=== PATIENT | female | born 1965 | race Caucasian/White ===

== ENCOUNTER 2016-07-27 11:05 | Emergency (ER) | payer OTHER ==
[2016-07-27 11:22] VITALS: BP 147/83; PULSE 76; TEMP 98.1; O2SAT 97
[2016-07-27] MEDS ORDERED: Albuterol-Ipratrop 3 mg / 0.5 (3 ml) UD INH STA (12:31)
--- NOTE | 2016-07-27 12:34 | ED PDOC ---
HPI: General Adult Time Seen by Provider: 07/27/16 12:12 Chief Complaint (Nursing): Shortness Of Breath Chief Complaint (Provider): Cough, Shortness of breath History Per: Patient History/Exam Limitations: no limitations Onset/Duration Of Symptoms: Days (x4 days) Current Symptoms Are (Timing): Still Present Additional Complaint(s): 50 y/o female with a past medical history of hypertension presents to the emergency department with a complaint of a cough, shortness of breath, chest tightness, and sputum (rogers) since yesterday with no fever or chills. Patient denies any recent travel or known sick contacts. She denies any dyspnea on exertion. Dr. Alberto Conrad MD Past Medical History Reviewed: Historical Data, Nursing Documentation, Vital Signs Vital Signs: Last Vital Signs Temp 98.1 F 07/27/16 11:21 Pulse 76 07/27/16 11:21 Resp 20 07/27/16 12:51 BP 147/83 07/27/16 11:21 Pulse Ox 97 07/27/16 13:43 - Medical History PMH: HTN - Surgical History Surgical History: Appendectomy Other surgeries: Left ovarian Cyst removal, left oophorectomy - Family History Family History: States: No Known Family Hx - Living Arrangements Living Arrangements: With Family - Social History Current smoker - smoking cessation education provided: No Alcohol: None Drugs: Denies - Home Medications Home Medications: Ambulatory Orders Medication Instructions Recorded Ibuprofen [Motrin] 600 mg PO TID PRN #30 tab 04/07/14 Oseltamivir Phosphate [Tamiflu] 75 mg PO BID #10 cap 04/07/14 Ibuprofen [Motrin] 600 mg PO Q8 PRN #21 tab 03/02/15 Albuterol HFA [Ventolin HFA 90 1 puff IH ASDIR #1 unit 07/27/16 mcg/actuation (8 g)] Azithromycin [Zithromax] 250 mg PO DAILY #6 tab 07/27/16 Benzonatate 200 mg PO TID PRN #20 capsule 07/27/16 - Allergies Allergies/Adverse Reactions: Allergies Allergy/AdvReac Type Severity Reaction Status Date / Time No Known Allergies Allergy Verified 07/27/16 11:23 Review of Systems ROS Statement: Except As Marked, All Systems Reviewed And Found Negative Constitutional: Negative for: Fever Cardiovascular: Positive for: Other (Chest tightness when coughing) Respiratory: Positive for: Cough, Shortness of Breath, Pleuritic Pain, Sputum ( rogers). Negative for: Hemoptysis, SOB with Exertion Gastrointestinal: Negative for: Nausea, Vomiting Neurological: Negative for: Headache Physical Exam - Reviewed Nursing Documentation Reviewed: Yes Vital Signs Reviewed: Yes - Physical Exam Appears: Positive for: Non-toxic, No Acute Distress Head Exam: Positive for: ATRAUMATIC, NORMOCEPHALIC Skin: Positive for: Normal Color, Warm, Dry ENT: Positive for: Normal ENT Inspection. Negative for: Pharyngeal Erythema Neck: Positive for: Painless ROM Cardiovascular/Chest: Positive for: Regular Rate, Rhythm. Negative for: Murmur Respiratory: Positive for: Decreased Breath Sounds. Negative for: Accessory Muscle Use, Respiratory Distress Extremity: Negative for: Pedal Edema Neurologic/Psych: Positive for: Alert, Oriented - ECG Interpretation Of ECG: NSR 71 bpm, reviewed by PA and ED attending. O2 Sat by Pulse Oximetry: 97 (RA) Pulse Ox Interpretation: Normal - Other Rad CXR X-Ray: Interpreted by Me, Viewed By Me, Read By Radiologist X-Ray Interpretation: no acute infiltrate, see below Nebulizer Treatments/Peak Flow - Duonebs Number of Bronchodilator Doses given?: 1 (duoneb) - Pre/Post Peak Flow Pre Treatment Peak Flow: 300 Post treatment Peak Flow: 340 - Steroid Treatment Steroid: Not Clinically Indicated - Clinical Response Clinical Response: Improved Medical Decision Making Medical Decision Making: Time: 12:12 Initial plan: Chest Two Views (RAD) Duoneb 3mL INH Stat Nebulizer Treatment Peak Flow Pre/Post TX Influenza A B Stat Time: 13:25 --Chest X-ray FINDINGS: Examination limited by habitus. LUNGS: No focal consolidation. Please note that chest x-ray has limited sensitivity for the detection of pulmonary masses. PLEURA: No significant pleural effusion identified. No definite pneumothorax . CARDIOVASCULAR: Heart size appears within normal limits. Prominent mediastinum with ectatic aorta. OSSEOUS STRUCTURES: No acute osseous abnormality identified. VISUALIZED UPPER ABDOMEN: Unremarkable. OTHER FINDINGS: None. IMPRESSION: Prominent mediastinum with ectatic aorta. No focal consolidation, significant pleural effusion, or definite pneumothorax identified. Patient feels better after duoneb was given. Flu is negative. Prescription given for Tessalon Perles, albuterol inhaler and Zithromax. Patient was instructed to take meds as directed. She is advised to follow up with primary doctor in 1-2 days. Scribe Attestation: Documented by Latasha Bullock, acting as a scribe for Poonam Hunter PA-C. Provider Scribe Attestation: All medical record entries made by the Scribe were at my direction and personally dictated by me. I have reviewed the chart and agree that the record accurately reflects my personal performance of the history, physical exam, medical decision making, and the department course for this patient. I have also personally directed, reviewed, and agree with the discharge instructions and disposition. Disposition - Clinical Impression Clinical Impression: Bronchitis - Patient ED Disposition Is Patient to be Admitted: No Counseled Patient/Family Regarding: Studies Performed, Diagnosis, Need For Followup, Rx Given - Disposition Referrals: Alberto Conrad [Staff Provider] - Disposition: Routine/Home Disposition Time: 13:49 Condition: STABLE Additional Instructions: Take prescription meds as directed. Rest and drink plenty of fluids. Follow up with primary doctor in 1-2 days or return to ED if acutely worse at any time. Prescriptions: Benzonatate 200 mg PO TID PRN #20 capsule PRN Reason: Cough Albuterol HFA [Ventolin HFA 90 mcg/actuation (8 g)] 1 puff IH ASDIR #1 unit Azithromycin [Zithromax] 250 mg PO DAILY #6 tab Instructions: Acute Bronchitis (ED) Forms: [facility] ED School/Work Excuse
[2016-07-27] MEDS ORDERED: Albuterol-Ipratrop 3 mg / 0.5 (3 ml) UD ONE (12:42)
[2016-07-27 12:56] VITALS: RESP 20
--- NOTE | 2016-07-27 13:27 | RAD ---
HISTORY: cough COMPARISON: Chest x-ray performed 04/07/14 TECHNIQUE: Chest PA and lateral FINDINGS: Examination limited by habitus. LUNGS: No focal consolidation. Please note that chest x-ray has limited sensitivity for the detection of pulmonary masses. PLEURA: No significant pleural effusion identified. No definite pneumothorax . CARDIOVASCULAR: Heart size appears within normal limits. Prominent mediastinum with ectatic aorta. OSSEOUS STRUCTURES: No acute osseous abnormality identified. VISUALIZED UPPER ABDOMEN: Unremarkable. OTHER FINDINGS: None. IMPRESSION: Prominent mediastinum with ectatic aorta. No focal consolidation, significant pleural effusion, or definite pneumothorax identified.
--- NOTE | 2016-07-29 18:24 | CARD ---
APPROVED REPORT EKG Measurement Heart [id number] <Conclusion> Normal sinus rhythm Normal ECG
== END 2016-07-27 14:00 | disposition home or self-care (01) ==
LOC: H.ER 11:05
DX: J40 Bronchitis, not specified as acute or chronic (principal); I10 Essential (primary) hypertension

== ENCOUNTER 2016-10-25 15:35 | Emergency (ER) | payer OTHER ==
[2016-10-25] MEDS ORDERED: Sodium Chloride 0.9% 1,000 ML IV STA (15:54)
--- NOTE | 2016-10-25 16:21 | ED PDOC ---
HPI: Back Time Seen by Provider: 10/25/16 15:53 Chief Complaint (Nursing): Back Pain Chief Complaint (Provider): Right flank pain History Per: Patient History/Exam Limitations: no limitations Onset/Duration Of Symptoms: Days (1) Current Symptoms Are (Timing): Still Present Quality Of Discomfort: Burning, "Pain" Additional Complaint(s): Moraima Santo is a 51 y/o female presenting to the ER on 10/25/2016 with complaints of right flank pain onset yesterday. Pain, which radiates from the flank to her right lower abdomen, is associated with a low grade fever, malaise , and burning sensation upon urination. Patient denies any episodes of vomiting or diarrhea and any history of similar symptoms. She also notes she has not taken any medications for her pain prior to arrival. Past Medical History Reviewed: Historical Data, Nursing Documentation, Vital Signs Vital Signs: Last Vital Signs Temp 100.0 F H 10/25/16 15:47 Pulse 82 10/25/16 15:47 Resp 18 10/25/16 15:47 BP 144/66 10/25/16 15:47 Pulse Ox 98 10/25/16 15:47 - Medical History PMH: HTN - Surgical History Surgical History: Appendectomy Other surgeries: Ovarian Cyst removal and Left Ovary removal - Family History Family History: States: Unknown Family Hx - Social History Current smoker - smoking cessation education provided: No Alcohol: None Drugs: Denies - Immunization History Hx Tetanus Toxoid Vaccination: No Hx Influenza Vaccination: No Hx Pneumococcal Vaccination: No - Home Medications Home Medications: Ambulatory Orders Medication Instructions Recorded Ibuprofen [Motrin] 600 mg PO TID PRN #30 tab 04/07/14 Oseltamivir Phosphate [Tamiflu] 75 mg PO BID #10 cap 04/07/14 Ibuprofen [Motrin] 600 mg PO Q8 PRN #21 tab 03/02/15 Albuterol HFA [Ventolin HFA 90 1 puff IH ASDIR #1 unit 07/27/16 mcg/actuation (8 g)] Azithromycin [Zithromax] 250 mg PO DAILY #6 tab 07/27/16 Benzonatate 200 mg PO TID PRN #20 capsule 07/27/16 - Allergies Allergies/Adverse Reactions: Allergies Allergy/AdvReac Type Severity Reaction Status Date / Time No Known Allergies Allergy Verified 07/27/16 11:23 Review of Systems ROS Statement: Except As Marked, All Systems Reviewed And Found Negative Constitutional: Positive for: Fever, Malaise Gastrointestinal: Positive for: Abdominal Pain. Negative for: Vomiting, Diarrhea Genitourinary Female: Positive for: Dysuria, Frequency Musculoskeletal: Positive for: Other ((+) right flank pain ) Physical Exam - Reviewed Nursing Documentation Reviewed: Yes Vital Signs Reviewed: Yes - Physical Exam Appears: Positive for: Non-toxic, No Acute Distress Head Exam: Positive for: ATRAUMATIC, NORMOCEPHALIC Skin: Positive for: Normal Color. Negative for: Rash Eye Exam: Positive for: Normal appearance, EOMI, PERRL Neck: Positive for: Normal, Painless ROM, Supple Cardiovascular/Chest: Positive for: Regular Rate, Rhythm. Negative for: Murmur Respiratory: Positive for: Normal Breath Sounds. Negative for: Respiratory Distress Gastrointestinal/Abdominal: Positive for: Normal Exam, Tenderness ((+) right sided abdominal tenderness ) Back: Positive for: Normal Inspection, R CVA Tenderness. Negative for: L CVA Tenderness Extremity: Positive for: Normal ROM. Negative for: Deformity, Swelling Neurologic/Psych: Positive for: Alert, Oriented. Negative for: Motor/Sensory Deficits - Laboratory Results Result Diagrams: 10/25/16 16:31 - ECG O2 Sat by Pulse Oximetry: 98 Medical Decision Making Medical Decision Makin:53 Initial Impression- 51 y/o female with low grade fever, flank pain, and abdominal pain Initial Plan- * CT ABD & Pelvis IV * CMP * CBC w/ differential * Sodium Chloride 1,000 ml IV * Blood Cx * Urine Cx * UA Pt with low grade fever does not meet SIRS criteria. Will obtain imaging and blood work to r/p pyelonephritis vs. renal colic vs. colitis vs. other pelvic or abdominal disease. Documented by Monty Curran, acting as a scribe for Kunal Medellin III, DO. All medical record entries made by the Scribe were at my direction and personally dictated by me. I have reviewed the chart and agree that the record accurately reflects my personal performance of the history, physical exam, medical decision making, and the department course for this patient. I have also personally directed, reviewed, and agree with the discharge instructions and disposition. Disposition - Clinical Impression Clinical Impression: Flank pain - Patient ED Disposition Is Patient to be Admitted: Transfer of Care - Disposition Disposition Time: 17:00 Condition: STABLE Patient Signed Over To: Tawana Burrows Handoff Comments: pending bloodwork, CT imaging/ dispo/dx
[2016-10-25 16:37] LABS: BASO # 0.1 K/uL (0.0-0.2); BASO % 0.5 % (0.0-2.0); EOS # 0.1 K/uL (0.0-0.7); EOS % 0.9 % (0.0-4.0); HEMOGLOBIN 11.4 g/dL (12.0-16.0); LYMPH # 3.3 K/uL (1.0-4.3); MEAN CELL VOLUME 85.1 fl (81.0-99.0); MEAN CORPUSCULAR HEMOGLOBIN 27.4 pg (27.0-31.0); MEAN CORPUSCULAR HGB CONC 32.2 g/dL (33.0-37.0); MEAN PLATELET VOLUME 9.6 fl (7.2-11.7); MONO # 1.7 K/uL (0.0-0.8); MONO % 11.4 % (0.0-10.0); NEUT # 9.3 K/uL (1.8-7.0); NEUT % 64.2 % (50.0-75.0); RBC 4.15 Mil/uL (3.80-5.20); RED CELL DISTRIBUTION WIDTH 14.6 % (11.5-14.5); WHITE BLOOD COUNT 14.5 K/uL (4.8-10.8)
[2016-10-25 16:51] LABS: ALB/GLOB RATIO 1.5 (1.0-2.1); ALBUMIN 4.6 g/dL (3.5-5.0); ALT/SGPT 38 U/L (9-52); AST/SGOT 28 U/L (14-36); BLOOD UREA NITROGEN 16 mg/dl (7-17); CALCIUM 9.5 mg/dL (8.4-10.2); GFR AFRICAN-AMERICAN > 60; GFR NON-AFRICAN AMERICAN > 60
[2016-10-25 17:14] LABS: SQUAMOUS EPITHIAL < 1 /hpf (0-5); URINE BACTERIA OCC (<OCC); URINE BILIRUBIN NEGATIVE (NEGATIVE); URINE BLOOD MODERATE (NEGATIVE); URINE CLARITY SLIGHTY-CLOUDY (Clear); URINE COLOR YELLOW (YELLOW); URINE GLUCOSE (UA) NEG (Normal); URINE LEUKOCYTE ESTERASE SMALL Leu/uL (Negative); URINE NITRATE NEGATIVE (NEGATIVE); URINE PROTEIN 100 mg/dL (NEGATIVE); URINE UROBILINOGEN 0.2-1.0 mg/dL (0.2-1.0)
[2016-10-25] MEDS ORDERED: cefTRIAXone (Rocephin) 1 gm Inj ONE (17:43)
--- NOTE | 2016-10-25 18:18 | ED PDOC ---
"- Laboratory Results Result Diagrams: 10/25/16 16:31 10/25/16 16:31 - ECG O2 Sat by Pulse Oximetry: 98 - Progress Re-evaluation Time: 20:54 Condition: Re-examined, Improved Medical Decision Making Medical Decision Makin:00 Pt signed out to me by Dr. Lacie PONCE DO. Pending labs and CT report. Order of Rocephin has been placed to r/o pyelonephritis. EXAM: CT Abdomen and Pelvis With Intravenous Contrast CLINICAL HISTORY: 51 year old female with right flank pain, fever, and lower abd. pain. Painful urination. Previous appendectomy, tubal ligation, and left oophorectomy. TECHNIQUE: Axial computed tomography images of the abdomen and pelvis with intravenous contrast. This CT exam was performed using one or more of the following dose reduction techniques: automated exposure control, adjustment of the mA and/or kV according to patient size, and/or use of iterative reconstruction technique. Coronal and sagittal reformatted images were created and reviewed. CONTRAST: 95 mL of Omnipaque 300 administered intravenously EXAM DATE/TIME: 10/25/16 (4:09pm) COMPARISON: No relevant prior studies available FINDINGS: Lower thorax: No acute findings. No pleural effusions. ABDOMEN: Liver: Unremarkable. No masses. Gallbladder and bile ducts: Moderately distended gallbladder. No calcified stones. No ductal dilatation. Pancreas: Unremarkable. No mass. No ductal dilatation. Spleen: Unremarkable. No splenomegaly. Adrenals: Unremarkable. No mass. Kidneys and ureters: Unremarkable. No solid mass. No hydronephrosis. Stomach and bowel: Unremarkable. No bowel obstruction. No mucosal thickening. Appendix: Previous appendectomy (as per the history provided). MAGGI MILAN | Preliminary Radiology Report FINANCIAL OFFICER (QA) DISCREPANCY? If there is a discrepancy between the preliminary and final interpretation, please notify [facility] via [email or web address]. If you do not have access to our QA portal, call our QA team at [phone] CONFIDENTIALITY STATEMENT This report is intended only for the use of the referring physician, and only in accordance with law, If you received this in error, call [phone] Page 2 of 2 PELVIS: Bladder: Unremarkable. No mass. Reproductive: Unremarkable as visualized. ABDOMEN and PELVIS: Intraperitoneal space: Unremarkable. No free air. No significant fluid collection. Bones/joints: No acute fracture nor dislocation. Soft tissues: Unremarkable. Vasculature: Unremarkable. No abdominal aortic aneurysm. Lymph nodes: Unremarkable. No enlarged lymph nodes. IMPRESSION: No acute pathology. No hydronephrosis is appreciated. No radiodense urinary tract stones are visualized. Thank you for allowing us to participate in the care of your patient. Dictated and Authenticated by: Genevieve Adams MD 10/25/2016 7:43 PM Eastern Time ([place] & [place]) Documented by Monty Curran, acting as a scribe for Tawana Burrows MD. All medical record entries made by the Scribe were at my direction and personally dictated by me. I have reviewed the chart and agree that the record accurately reflects my personal performance of the history, physical exam, medical decision making, and the department course for this patient. I have also personally directed, reviewed, and agree with the discharge instructions and disposition. Disposition Doctor Will See Patient In The: Office Counseled Patient/Family Regarding: Studies Performed, Diagnosis, Need For Followup - Clinical Impression Clinical Impression: Flank pain, UTI (urinary tract infection) - POA Present On Arrival: None - Disposition Referrals: Alberto Conrad [Family Provider] - Disposition: Routine/Home Disposition Time: 20:13 Condition: GOOD Additional Instructions: Take your medications as instructed. Follow up with your PCP in 2-3 days. Return for worsening. Prescriptions: Sulfamethoxazole/Trimethoprim [Bactrim DS 800 mg-160 mg] 1 tab PO BID #20 tab traMADol [Ultram] 50 mg PO TID PRN #12 tab PRN Reason: Pain, Severe (8-10) Instructions: Urinary Tract Infection in Women (ED)"
[2016-10-25] MEDS ORDERED: Sodium Chloride 0.9% 50 ML IV ONE (18:45)
[2016-10-25] MEDS ORDERED: Iohexol 300 100 ML IJ ONE (18:45)
[2016-10-25 21:03] VITALS: BP 125/80; PULSE 85; RESP 16; TEMP 98.9; O2SAT 100
--- NOTE | 2016-10-26 08:20 | CT ---
PROCEDURE: CT Abdomen and Pelvis with contrast HISTORY: R flank pain/fever; hx appendectomy COMPARISON: None. TECHNIQUE: Contrast dose: 95 cc Omnipaque 300 Radiation dose: Total exam DLP = 955.37 mGy-cm. This CT exam was performed using one or more of the following dose reduction techniques: Automated exposure control, adjustment of the mA and/or kV according to patient size, and/or use of iterative reconstruction technique. FINDINGS: LOWER THORAX: Unremarkable. LIVER: Hepatomegaly/hepatic steatosis. No focal hepatic abnormalities GALLBLADDER AND BILE DUCTS: Unremarkable. PANCREAS: Unremarkable. No gross lesion or ductal dilatation. SPLEEN: A normal spleen is not visualized there is no history of prior splenectomy. . ADRENALS: Unremarkable. No mass. KIDNEYS AND URETERS: Unremarkable. No hydronephrosis. No solid mass. VASCULATURE: Unremarkable. No aortic aneurysm. BOWEL: Unremarkable. No obstruction. No gross mural thickening. APPENDIX: Surgical clips at the base of the cecum consistent with prior appendectomy. PERITONEUM: Unremarkable. No free fluid. No free air. LYMPH NODES: Unremarkable. No enlarged lymph nodes. BLADDER: Unremarkable. REPRODUCTIVE: Unremarkable. BONES: No acute fracture. OTHER FINDINGS: None. IMPRESSION: No significant or acute findings to account for/ related to the clinical presentation. Additional benign and/or incidental findings described above. Concordant results (preliminary interpretation) provided by [facility]. Procedure Completed: 19:00 Preliminary ([facility]) Report: Dictated and Authenticated: 19:43 Final Interpretation: 08:19. October 26, 2016.
== END 2016-10-25 21:07 | disposition home or self-care (01) ==
LOC: H.ER 15:35
DX: N39.0 Urinary tract infection, site not specified (principal); I10 Essential (primary) hypertension; Z90.49 Acquired absence of other specified parts of digestive tract

== ENCOUNTER 2017-06-15 13:10 | Emergency (ER) | payer OTHER ==
[2017-06-15 13:16] VITALS: BP 154/82; PULSE 84; RESP 18; TEMP 97.8; O2SAT 99
[2017-06-15] MEDS ORDERED: Naproxen 500 MG TAB PO STA (13:52)
--- NOTE | 2017-06-15 14:06 | ED PDOC ---
Lower Extremity Pain/Injury Time Seen by Provider: 06/15/17 13:28 Chief Complaint (Nursing): Back Pain Chief Complaint (Provider): Right knee pain, fall History Per: Patient History/Exam Limitations: no limitations Onset/Duration Of Symptoms: Days Current Symptoms Are (Timing): Still Present Additional Complaint(s): 51 yo female with history of HTN presents with right knee pain s/p fall. PT states she was in the garage before work when she slipped on ice, a little before 7 o'clock am. Pt states her legs slide apart and she it the right knee on the ground. Pt states she also braced herself with the left hand. Pt states the right wrist is a little sore. 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 Pt did not take anything for pain. Past Medical History Reviewed: Historical Data, Vital Signs Vital Signs: Last Vital Signs Temp 97.8 F 06/15/17 13:13 Pulse 84 06/15/17 13:13 Resp 18 06/15/17 13:13 BP 154/82 H 06/15/17 13:13 Pulse Ox 99 06/15/17 13:13 - Medical History PMH: HTN - Surgical History Surgical History: Appendectomy - Family History Family History: States: Unknown Family Hx - Living Arrangements Living Arrangements: With Family - Social History Current smoker - smoking cessation education provided: No Alcohol: None Drugs: Denies - Immunization History Hx Tetanus Toxoid Vaccination: No Hx Influenza Vaccination: No Hx Pneumococcal Vaccination: No - Home Medications Home Medications: Ambulatory Orders Medication Instructions Recorded Ibuprofen [Motrin] 600 mg PO TID PRN #30 tab 04/07/14 Oseltamivir Phosphate [Tamiflu] 75 mg PO BID #10 cap 04/07/14 Ibuprofen [Motrin] 600 mg PO Q8 PRN #21 tab 03/02/15 Albuterol HFA [Ventolin HFA 90 1 puff IH ASDIR #1 unit 07/27/16 mcg/actuation (8 g)] Azithromycin [Zithromax] 250 mg PO DAILY #6 tab 07/27/16 Benzonatate 200 mg PO TID PRN #20 capsule 07/27/16 Sulfamethoxazole/Trimethoprim 1 tab PO BID #20 tab 10/25/16 [Bactrim DS 800 mg-160 mg] traMADol [Ultram] 50 mg PO TID PRN #12 tab 10/25/16 - Allergies Allergies/Adverse Reactions: Allergies Allergy/AdvReac Type Severity Reaction Status Date / Time No Known Allergies Allergy Verified 07/27/16 11:23 Review of Systems ROS Statement: Except As Marked, All Systems Reviewed And Found Negative Constitutional: Negative for: Fever, Chills Musculoskeletal: Positive for: Leg Pain, Other (Left wrist pain) Neurological: Negative for: Weakness, Numbness Physical Exam - Reviewed Nursing Documentation Reviewed: Yes Vital Signs Reviewed: Yes - Physical Exam Appears: Positive for: Well, Non-toxic, No Acute Distress Head Exam: Positive for: ATRAUMATIC, NORMAL INSPECTION, NORMOCEPHALIC Skin: Positive for: Normal Color, Warm, DRY Eye Exam: Positive for: Normal appearance ENT: Positive for: Normal ENT Inspection Neck: Positive for: Normal, Painless ROM Cardiovascular/Chest: Positive for: Regular Rate, Rhythm Respiratory: Positive for: CNT, Normal Breath Sounds Gastrointestinal/Abdominal: Positive for: Normal Exam, Bowel Sounds, Soft Back: Positive for: Normal Inspection Extremity: Positive for: Normal ROM Neurologic/Psych: Positive for: Alert, Oriented - ECG O2 Sat by Pulse Oximetry: 99 Medical Decision Making Medical Decision Making: Knee x-ray normal. Pt given naproxen in ER. Disposition - Clinical Impression Clinical Impression: Knee pain - Patient ED Disposition Is Patient to be Admitted: No - Disposition Disposition: Routine/Home Disposition Time: 14:43 Condition: STABLE Instructions: Knee Pain (DC) Forms: [facility] ([place]), [facility] ED School/Work Excuse
--- NOTE | 2017-06-15 14:39 | RAD ---
PROCEDURE: Right Knee Radiographs. HISTORY: right knee pain, s/p fall COMPARISON: CT scan of the right knee dated 07/30/2014. FINDINGS: BONES: No acute fracture. JOINTS: Unremarkable. JOINT EFFUSION: None. OTHER FINDINGS: Quadriceps and patellar tendon enthesophytes. Soft tissue changes adjacent to patellar tendon. IMPRESSION: No demonstrated fracture or dislocation.
== END 2017-06-15 14:52 | disposition home or self-care (01) ==
LOC: H.ER 13:10
DX: M25.512 Pain in left shoulder (principal); W19.XXXA Unspecified fall, initial encounter; Y92.89 Other specified places as the place of occurrence of the external cause; I10 Essential (primary) hypertension

== ENCOUNTER 2018-01-16 08:49 | Emergency (ER) | payer OTHER ==
[2018-01-16 09:09] VITALS: BP 151/78; PULSE 71; RESP 18; TEMP 98.2; O2SAT 99
--- NOTE | 2018-01-16 09:09 | ED PDOC ---
HPI: Influenza Time Seen by Provider: 01/16/18 08:59 Chief Complaint: Cough, Cold, Congestion History Per: Patient Onset/Duration Of Symptoms: Other (2 weeks) Symptoms include: fever, nasal congestion Hx Influenza Vaccination: Yes Additional complaint(s):: Nasal congestion and right sided sinus pain x 2 weeks. white/yellow drainage from nose. Fever yesterday. Denies cough or SOB. Past Medical History Vital Signs: Last Vital Signs Temp 98.2 F 01/16/18 09:03 Pulse 71 01/16/18 09:03 Resp 18 01/16/18 09:03 BP 151/78 H 01/16/18 09:03 Pulse Ox 99 01/16/18 09:03 - Medical History PMH: HTN - Surgical History Surgical History: Appendectomy - Family History Family History: States: Unknown Family Hx - Immunization History Hx Tetanus Toxoid Vaccination: No Hx Influenza Vaccination: No Hx Pneumococcal Vaccination: No - Home Medications Home Medications: Ambulatory Orders Medication Instructions Recorded Ibuprofen [Motrin] 600 mg PO TID PRN #30 tab 04/07/14 Oseltamivir Phosphate [Tamiflu] 75 mg PO BID #10 cap 04/07/14 Ibuprofen [Motrin] 600 mg PO Q8 PRN #21 tab 03/02/15 Albuterol HFA [Ventolin HFA 90 1 puff IH ASDIR #1 unit 07/27/16 mcg/actuation (8 g)] Azithromycin [Zithromax] 250 mg PO DAILY #6 tab 07/27/16 Benzonatate 200 mg PO TID PRN #20 capsule 07/27/16 Sulfamethoxazole/Trimethoprim 1 tab PO BID #20 tab 10/25/16 [Bactrim DS 800 mg-160 mg] traMADol [Ultram] 50 mg PO TID PRN #12 tab 10/25/16 Amoxicillin/Potassium Clav 1 tab PO TID #30 tab 01/16/18 [Augmentin 500 mg-125 mg] Fluticasone Nasal [Flonase] 1 spr NS DAILY #1 spr 01/16/18 - Allergies Allergies/Adverse Reactions: Allergies Allergy/AdvReac Type Severity Reaction Status Date / Time No Known Allergies Allergy Verified 07/27/16 11:23 Review of Systems Constitutional: Positive for: Fever ENT: Positive for: Nose Discharge, Nose Congestion Respiratory: Negative for: Cough Physical Exam - Physical Exam Appears: Positive for: Non-toxic, No Acute Distress Skin: Positive for: Normal Color, Warm, DRY ENT: Positive for: Sinus Pain/Drainage (Right maxillary sinus tenderness). Negative for: Pharyngeal Erythema Neck: Positive for: Normal, Painless ROM Cardiovascular/Chest: Positive for: Regular Rate, Rhythm Respiratory: Positive for: CNT, Normal Breath Sounds - ECG O2 Sat by Pulse Oximetry: 99 Disposition - Clinical Impression Clinical Impression: Sinusitis - Patient ED Disposition Is Patient to be Admitted: No Counseled Patient/Family Regarding: Diagnosis, Need For Followup, Rx Given - Disposition Referrals: Aneesh Weinberg MD [Staff Provider] - Disposition: Routine/Home Disposition Time: 09:10 Condition: FAIR Prescriptions: Amoxicillin/Potassium Clav [Augmentin 500 mg-125 mg] 1 tab PO TID #30 tab Fluticasone Nasal [Flonase] 1 spr NS DAILY #1 spr Instructions: Sinusitis in Adults
== END 2018-01-16 09:32 | disposition home or self-care (01) ==
LOC: H.ER 08:49
DX: J32.9 Chronic sinusitis, unspecified (principal); I10 Essential (primary) hypertension

== ENCOUNTER 2018-06-19 09:25 | Observation (INO) | payer OTHER ==
[2018-06-19 09:38] VITALS: BMI 33.8
[2018-06-19] MEDS ORDERED: Sodium Chloride 0.9% 500 ML IV STA (10:03)
[2018-06-19] MEDS ORDERED: Piperacillin/Tazobact 3.375 GM in Sodium Chloride 0.9% 100 ML IV STA (10:06)
--- NOTE | 2018-06-19 10:06 | ED PDOC ---
HPI: Chest Pain Time Seen by Provider: 06/19/18 09:34 Chief Complaint (Nursing): Chest Pain Chief Complaint (Provider): Chest pain History Per: Patient History/Exam Limitations: no limitations Onset/Duration Of Symptoms: Days (1) Current Symptoms Are (Timing): Still Present Associated Symptoms: denies: Nausea, Dyspnea, Diaphoresis, Syncope Additional History Per: Patient Additional Complaint(s): 52yo female, with high blood pressure, comes to ER reporting a left sided chest pain, and associated shortness of breath when the pain is worse. No fever, chills, radiation of pain, vomiting or sweats. Patient denies any exertional activity, or heavy lifting. She also denies any headache, leg pain or leg swelling; no additional medical complaints. Patient took one aspirin yesterday, and no medications today. PMD: Alberto Conrad Past Medical History Reviewed: Historical Data, Nursing Documentation, Vital Signs Vital Signs: Last Vital Signs Temp 98.1 F 06/19/18 09:37 Pulse 96 H 06/19/18 09:37 Resp 20 06/19/18 09:37 BP 122/70 06/19/18 09:37 Pulse Ox 98 06/19/18 09:37 - Medical History PMH: HTN - Surgical History Surgical History: Appendectomy - Family History Family History: States: Unknown Family Hx - Immunization History Hx Tetanus Toxoid Vaccination: No Hx Influenza Vaccination: No Hx Pneumococcal Vaccination: No - Home Medications Home Medications: Ambulatory Orders Medication Instructions Recorded Ibuprofen [Motrin] 600 mg PO TID PRN #30 tab 04/07/14 Oseltamivir Phosphate [Tamiflu] 75 mg PO BID #10 cap 04/07/14 Ibuprofen [Motrin] 600 mg PO Q8 PRN #21 tab 03/02/15 Albuterol HFA [Ventolin HFA 90 1 puff IH ASDIR #1 unit 07/27/16 mcg/actuation (8 g)] Azithromycin [Zithromax] 250 mg PO DAILY #6 tab 07/27/16 Benzonatate 200 mg PO TID PRN #20 capsule 07/27/16 Sulfamethoxazole/Trimethoprim 1 tab PO BID #20 tab 10/25/16 [Bactrim DS 800 mg-160 mg] traMADol [Ultram] 50 mg PO TID PRN #12 tab 07/18/17 Amoxicillin/Potassium Clav 1 tab PO TID #30 tab 01/16/18 [Augmentin 500 mg-125 mg] Fluticasone Nasal [Flonase] 1 spr NS DAILY #1 spr 01/16/18 - Allergies Allergies/Adverse Reactions: Allergies Allergy/AdvReac Type Severity Reaction Status Date / Time No Known Allergies Allergy Verified 07/27/16 11:23 Review of Systems ROS Statement: Except As Marked, All Systems Reviewed And Found Negative Constitutional: Negative for: Fever, Chills, Sweats Cardiovascular: Positive for: Chest Pain Respiratory: Positive for: Shortness of Breath (with chest pain ) Gastrointestinal: Negative for: Nausea, Vomiting, Abdominal Pain Neurological: Negative for: Weakness, Numbness Physical Exam - Reviewed Nursing Documentation Reviewed: Yes Vital Signs Reviewed: Yes - Physical Exam Appears: Positive for: Non-toxic, No Acute Distress Head Exam: Positive for: ATRAUMATIC, NORMAL INSPECTION, NORMOCEPHALIC Skin: Positive for: Normal Color, Warm. Negative for: Diaphoresis Eye Exam: Positive for: EOMI, Normal appearance, PERRL ENT: Positive for: Normal ENT Inspection Neck: Positive for: Normal, Painless ROM Cardiovascular/Chest: Positive for: Regular Rate, Rhythm, Chest Non Tender. Negative for: Tachycardia Respiratory: Positive for: Normal Breath Sounds. Negative for: Wheezing Gastrointestinal/Abdominal: Positive for: Normal Exam, Soft Back: Positive for: Normal Inspection. Negative for: L CVA Tenderness, R CVA Tenderness Extremity: Positive for: Normal ROM. Negative for: Tenderness, Pedal Edema, Deformity Neurological/Psych: Positive for: Awake, Alert, Normal Tone, Oriented (x 3) - Laboratory Results Result Diagrams: 06/19/18 10:25 06/19/18 10:25 Lab Results: no acute - ECG ECG: Positive for: Interpreted By Me, Viewed By Me ECG Rhythm: Positive for: Normal QRS, Normal ST Segment, Sinus Rhythm O2 Sat by Pulse Oximetry: 98 (RA) Pulse Ox Interpretation: Normal - Radiology X-Ray: Interpreted by Me, Viewed By Me X-Ray Interpretation: No Acute Disease - Progress ED Course And Treament: 1157: Stable. AAOx3. Pain free. Spoke with Dr. Stevenson. Will admit. Medical Decision Making Medical Decision Making: Impression: Chest pain Plan: -- Labs -- EKG -- chest x-ray -- ASA 325mg PO -- IV Fluids Scribe Attestation: Documented by Sarah Davies acting as a scribe for Roshan Curran MD. Provider Attestation: All medical record entries made by the Scribe were at my direction and personally dictated by me. I have reviewed the chart and agree that the record accurately reflects my personal performance of the history, physical exam, medical decision making, and the department course for this patient. I have also personally directed, reviewed, and agree with the discharge instructions and disposition. Disposition - Clinical Impression Clinical Impression: Chest pain - Patient ED Disposition Is Patient to be Admitted: Yes Counseled Patient/Family Regarding: Studies Performed, Diagnosis - Disposition Disposition Time: 11:58 Condition: FAIR - Pt Status Changed To: Hospital Disposition Of: Observation - POA Present On Arrival: None
[2018-06-19 10:55] LABS: BASO # 0.1 K/uL (0.0-0.2); BASO % 0.8 % (0.0-2.0); EOS # 0.2 K/uL (0.0-0.7); EOS % 2.2 % (0.0-4.0); LYMPH # 3.4 K/uL (1.0-4.3); MEAN CELL VOLUME 83.8 fl (81.0-99.0); MEAN CORPUSCULAR HEMOGLOBIN 27.8 pg (27.0-31.0); MEAN CORPUSCULAR HGB CONC 33.1 g/dL (33.0-37.0); MEAN PLATELET VOLUME 9.9 fl (7.2-11.7); MONO % 11.4 % (0.0-10.0); NEUT # 4.4 K/uL (1.8-7.0); NEUT % 48.6 % (50.0-75.0); NRBC % 0.1 % (0.0-0.0); RBC 4.32 Mil/uL (3.80-5.20); RED CELL DISTRIBUTION WIDTH 14.8 % (11.5-14.5); WHITE BLOOD COUNT 9.1 K/uL (4.8-10.8)
[2018-06-19 10:57] LABS: PROTHROMBIN TIME 11.3 Seconds (9.8-13.1)
[2018-06-19 11:00] LABS: PARTIAL THROMBOPLASTIN TIME 34.1 Seconds (25.6-37.1)
[2018-06-19 11:03] LABS: ALB/GLOB RATIO 1.5 (1.0-2.1); ALBUMIN 4.3 g/dL (3.5-5.0); ALT/SGPT 27 U/L (9-52); AST/SGOT 30 U/L (14-36); BLOOD UREA NITROGEN 16 mg/dl (7-17); CALCIUM 9.4 mg/dL (8.4-10.2); GFR NON-AFRICAN AMERICAN > 60
--- NOTE | 2018-06-19 12:55 | CP.PCM.HP ---
<Reji Darden - Last Filed: 06/19/18 17:04> History of Present Illness - History of Present Illness History of Present Illness: 52 Y/O Female with PMH of HTN currently not on any medication, obesity, and hypothyroidsm who presents to [facility] ED with c/o left sided chest pain. Patient proceeds to explain that she started with chest pain yesterday around 4 to 5 PM, was sharp, 8/10 in intensity, with no radiation, is intermittent, not associated with fatigue, cough or SOB. Patient states she was walking when she started with pain but she was not doing any estrenous activity, also she denies ever suffering similar pain in the past. Patient endorses that yesterday when she felt the pain she took 2 tabs of aspirin 325, and states that the pain got relief in the evening. Patient reports that today she started feeling the same pain again while driving to work approximately 7 AM and she notes that the pain increased when she started working and walking the stairs, then she decided to come to the ED. Patient endorses in the past she has experienced occasional palpitations, but no fatigue, SOB or CP. Patient admits she was taking metoprolol for HTN and stopped it on her own 6 months ago. She is also not taking medications for hypothyoidsm. During this encounter in the ED patient denies chest pain, SOB, fatigue, palpitations or other acute medical complaint at present. ROS: 12 systems reviewed and found unremarkable, except as per HPI PMD: Currnetly none PMH: HTN, Obesity, Hypothyroidsm FMH: Mother HTN, Father of lung [place] ALLERG: NKA SURGHx: Appendectomy, left ovarian cyst, Left oophorectomy. SOCHx: Denies smoking, rec drugs. 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 MEDS: none ED Course: VS on arrival: 9:37 AM BP 122/70 HR 96, RR 20, O2 sat 98%. LABS: CBC unremarkable, Chem Troponin x1 negative EKG: NSR, no ST T wave abnormalities CXR no active disease. Treatments: Aspirin 325 PO x1 given Present on Admission - Present on Admission Any Indicators Present on Admission: No History of DVT/PE: No History of Uncontrolled Diabetes: No Urinary Catheter: No Decubitus Ulcer Present: No Past Patient History - Past Social History Smoking Status: Never Smoked - CARDIAC Hx Hypertension: Yes - PSYCHIATRIC Hx Substance Use: No - SURGICAL HISTORY Hx Appendectomy: Yes - ANESTHESIA Hx Anesthesia: No Meds Allergies/Adverse Reactions: Allergies Allergy/AdvReac Type Severity Reaction Status Date / Time No Known Allergies Allergy Verified 07/27/16 11:23 Physical Exam - Constitutional Appears: No Acute Distress - Head Exam Head Exam: ATRAUMATIC, NORMOCEPHALIC - Eye Exam Eye Exam: EOMI - ENT Exam ENT Exam: Mucous Membranes Moist - Respiratory Exam Respiratory Exam: Clear to Auscultation Bilateral. absent: Wheezes - Cardiovascular Exam Cardiovascular Exam: REGULAR RHYTHM, +S1, +S2 - GI/Abdominal Exam GI & Abdominal Exam: Soft. absent: Tenderness - Extremities Exam Extremities exam: Negative for: calf tenderness - Neurological Exam Neurological exam: Alert, CN II-XII Intact, Oriented x3 - Psychiatric Exam Psychiatric exam: Normal Affect - Skin Skin Exam: Normal Color, Warm Results - Vital Signs Recent Vital Signs: Last Vital Signs Temp 98.1 F 06/19/18 09:37 Pulse 80 06/19/18 10:00 Resp 20 06/19/18 09:37 BP 122/70 06/19/18 09:37 Pulse Ox 98 06/19/18 11:58 - Labs Result Diagrams: 06/19/18 10:25 06/19/18 10:25 Labs: Laboratory Results - last 24 hr 06/19/18 06/19/18 06/19/18 10:25 10:25 10:25 WBC 9.1 RBC 4.32 Hgb 12.0 Hct 36.2 MCV 83.8 MCH 27.8 MCHC 33.1 RDW 14.8 H Plt Count 310 MPV 9.9 Neut % (Auto) 48.6 L Lymph % (Auto) 37.0 Preble % (Auto) 11.4 H Eos % (Auto) 2.2 Baso % (Auto) 0.8 Neut # (Auto) 4.4 Lymph # (Auto) 3.4 Preble # (Auto) 1.0 H Eos # (Auto) 0.2 Baso # (Auto) 0.1 PT 11.3 INR 1.0 APTT 34.1 Sodium 142 Potassium 3.9 Chloride 108 H Carbon Dioxide 24 Anion Gap 14 BUN 16 Creatinine 0.5 L Est GFR ( Amer) > 60 Est GFR (Non-Af Amer) > 60 Random Glucose 94 Calcium 9.4 Total Bilirubin 0.4 AST 30 ALT 27 Alkaline Phosphatase 43 Troponin I < 0.0120 Total Protein 7.3 Albumin 4.3 Globulin 2.9 Albumin/Globulin Ratio 1.5 Assessment & Plan - Assessment and Plan (Free Text) Assessment: 52 Y/O Female with PMH of HTN currently not on any medication, obesity, and hypothyroidsm who presents to [facility] ED with c/o left sided chest pain, will be admitted for Chest pain to r/o ACS. Plan: Chest pain r/o ACS EKG: NSR, no ST orT wave abnormalities Troponin : negative, will f/u Troponin Q6h x2 more Continue VS monitoring Aspirin 325 1 given Aspirin 81 PO QD Lipid panel, f/u results HbA1C, F/u Nitroglycerin SL 0.4mg Q5min PRN CP HTN Start Norvasc ?Hypothyroidism TSH, F/u results DVT Prophylaxis Lovenox 40 SC QD Full code status <StevensonGal D - Last Filed: 06/19/18 20:12> Results - Vital Signs Recent Vital Signs: Last Vital Signs Temp 98.5 F 06/19/18 18:50 Pulse 69 06/19/18 18:50 Resp 18 06/19/18 18:50 BP 120/74 06/19/18 18:50 Pulse Ox 97 06/19/18 18:50 - Labs Result Diagrams: 06/19/18 10:25 06/19/18 10:25 Labs: Laboratory Results - last 24 hr 06/19/18 06/19/18 06/19/18 10:25 10:25 10:25 WBC 9.1 RBC 4.32 Hgb 12.0 Hct 36.2 MCV 83.8 MCH 27.8 MCHC 33.1 RDW 14.8 H Plt Count 310 MPV 9.9 Neut % (Auto) 48.6 L Lymph % (Auto) 37.0 Preble % (Auto) 11.4 H Eos % (Auto) 2.2 Baso % (Auto) 0.8 Neut # (Auto) 4.4 Lymph # (Auto) 3.4 Preble # (Auto) 1.0 H Eos # (Auto) 0.2 Baso # (Auto) 0.1 PT 11.3 INR 1.0 APTT 34.1 Sodium 142 Potassium 3.9 Chloride 108 H Carbon Dioxide 24 Anion Gap 14 BUN 16 Creatinine 0.5 L Est GFR ( Amer) > 60 Est GFR (Non-Af Amer) > 60 Random Glucose 94 Hemoglobin A1c Calcium 9.4 Total Bilirubin 0.4 AST 30 ALT 27 Alkaline Phosphatase 43 Troponin I < 0.0120 Total Protein 7.3 Albumin 4.3 Globulin 2.9 Albumin/Globulin Ratio 1.5 06/19/18 06/19/18 16:30 17:41 WBC RBC Hgb Hct MCV MCH MCHC RDW Plt Count MPV Neut % (Auto) Lymph % (Auto) Preble % (Auto) Eos % (Auto) Baso % (Auto) Neut # (Auto) Lymph # (Auto) Preble # (Auto) Eos # (Auto) Baso # (Auto) PT INR APTT Sodium Potassium Chloride Carbon Dioxide Anion Gap BUN Creatinine Est GFR ( Amer) Est GFR (Non-Af Amer) Random Glucose Hemoglobin A1c 5.8 Calcium Total Bilirubin AST ALT Alkaline Phosphatase Troponin I < 0.0120 Total Protein Albumin Globulin Albumin/Globulin Ratio Attending/Attestation - Attestation I have personally seen and examined this patient.: Yes I have fully participated in the care of the patient.: Yes I have reviewed all pertinent clinical information: Yes Notes (Text): 06/19/18 20:11 Patient seen and examined with resident. Case discussed and agreed with assessment and plan of management
--- NOTE | 2018-06-19 15:24 | RAD ---
Date of service: 06/19/2018 HISTORY: dyspnea COMPARISON: 07/27/2016. TECHNIQUE: Chest PA and lateral FINDINGS: LUNGS: No active pulmonary disease. PLEURA: No significant pleural effusion identified. No pneumothorax apparent. CARDIOVASCULAR: No aortic atherosclerotic calcification present. Normal cardiac size. No pulmonary vascular congestion. OSSEOUS STRUCTURES: No significant abnormalities. VISUALIZED UPPER ABDOMEN: Normal. OTHER FINDINGS: None. IMPRESSION: No active disease. No significant interval change compared to the prior examination(s). Concordant results with the preliminary interpretation rendered by the emergency department physician procedure.
--- NOTE | 2018-06-19 21:10 | CARD ---
APPROVED REPORT Date of service: 06/19/2018 EKG Measurement Heart [id number] <Conclusion> Normal sinus rhythm Normal ECG
[2018-06-19 23:49] LABS: HDL CHOLESTEROL 37 MG/DL (30-70)
[2018-06-20 00:06] LABS: LDL CHOLESTEROL 82 mg/dL (0-129)
[2018-06-20 04:55] VITALS: TEMP 97.8
[2018-06-20 05:48] LABS: BASO # 0.1 K/uL (0.0-0.2); EOS # 0.3 K/uL (0.0-0.7); EOS % 4.3 % (0.0-4.0); LYMPH # 3.5 K/uL (1.0-4.3); LYMPH % 46.8 % (20.0-40.0); MEAN CORPUSCULAR HEMOGLOBIN 27.4 pg (27.0-31.0); MEAN CORPUSCULAR HGB CONC 32.3 g/dL (33.0-37.0); MEAN PLATELET VOLUME 10.2 fl (7.2-11.7); MONO % 12.7 % (0.0-10.0); NEUT # 2.7 K/uL (1.8-7.0); NEUT % 35.2 % (50.0-75.0); NRBC % 0.1 % (0.0-0.0); RBC 4.76 Mil/uL (3.80-5.20); RED CELL DISTRIBUTION WIDTH 14.5 % (11.5-14.5); WHITE BLOOD COUNT 7.6 K/uL (4.8-10.8)
[2018-06-20 06:00] LABS: BLOOD UREA NITROGEN 16 mg/dl (7-17); GFR NON-AFRICAN AMERICAN > 60
[2018-06-20 08:14] VITALS: BP 130/85; PULSE 69; RESP 18; O2SAT 96
--- NOTE | 2018-06-20 08:33 | CARD ---
APPROVED REPORT Date of service: 06/20/2018 EKG Measurement Heart [id number] <Conclusion> Normal sinus rhythm Normal ECG
[2018-06-20] MEDS ORDERED: Pantoprazole 40 mg EC Tab PO SCH (09:00)
[2018-06-20] MEDS ORDERED: Enoxaparin 40 mg Syringe SC SCH (09:00)
--- NOTE | 2018-06-20 09:49 | CP.PCM.DIS ---
<Eribertoada BrandonReji - Last Filed: 06/20/18 11:53> Provider - Provider Date of Admission: 06/19/18 11:59 Attending physician: Gal Stevenson MD Time Spent in preparation of Discharge (in minutes): 33 Diagnosis - Discharge Diagnosis (1) Hypertension Status: Chronic (2) Chest pain Status: Acute Hospital Course - Lab Results Lab Results: Most Recent Lab Values WBC 7.6 K/uL (4.8-10.8) 06/20/18 05:15 RBC 4.76 Mil/uL (3.80-5.20) 06/20/18 05:15 Hgb 13.0 g/dL (12.0-16.0) 06/20/18 05:15 Hct 40.4 % (34.0-47.0) 06/20/18 05:15 MCV 85.0 fl (81.0-99.0) 06/20/18 05:15 MCH 27.4 pg (27.0-31.0) 06/20/18 05:15 MCHC 32.3 g/dL (33.0-37.0) L 06/20/18 05:15 RDW 14.5 % (11.5-14.5) 06/20/18 05:15 Plt Count 324 K/uL (130-400) 06/20/18 05:15 MPV 10.2 fl (7.2-11.7) 06/20/18 05:15 Neut % (Auto) 35.2 % (50.0-75.0) L 06/20/18 05:15 Lymph % (Auto) 46.8 % (20.0-40.0) H 06/20/18 05:15 Waldo % (Auto) 12.7 % (0.0-10.0) H 06/20/18 05:15 Eos % (Auto) 4.3 % (0.0-4.0) H 06/20/18 05:15 Baso % (Auto) 1.0 % (0.0-2.0) 06/20/18 05:15 Neut # (Auto) 2.7 K/uL (1.8-7.0) 06/20/18 05:15 Lymph # (Auto) 3.5 K/uL (1.0-4.3) 06/20/18 05:15 Waldo # (Auto) 1.0 K/uL (0.0-0.8) H 06/20/18 05:15 Eos # (Auto) 0.3 K/uL (0.0-0.7) 06/20/18 05:15 Baso # (Auto) 0.1 K/uL (0.0-0.2) 06/20/18 05:15 PT 11.3 Seconds (9.8-13.1) 06/19/18 10:25 INR 1.0 06/19/18 10:25 APTT 34.1 Seconds (25.6-37.1) 06/19/18 10:25 Sodium 140 mmol/l (132-148) 06/20/18 05:15 Potassium 3.9 MMOL/L (3.6-5.0) 06/20/18 05:15 Chloride 107 mmol/L (98-107) 06/20/18 05:15 Carbon Dioxide 26 mmol/L (22-30) 06/20/18 05:15 Anion Gap 11 (10-20) 06/20/18 05:15 BUN 16 mg/dl (7-17) 06/20/18 05:15 Creatinine 0.6 mg/dl (0.7-1.2) L 06/20/18 05:15 Est GFR ( Amer) > 60 06/20/18 05:15 Est GFR (Non-Af Amer) > 60 06/20/18 05:15 Random Glucose 91 mg/dL (65-105) 06/20/18 05:15 Hemoglobin A1c 5.8 % (4.2-6.5) 06/19/18 16:30 Calcium 9.0 mg/dL (8.4-10.2) 06/20/18 05:15 Total Bilirubin 0.4 mg/dl (0.2-1.3) 06/19/18 10:25 AST 30 U/L (14-36) 06/19/18 10:25 ALT 27 U/L (9-52) 06/19/18 10:25 Alkaline Phosphatase 43 U/L (38-126) 06/19/18 10:25 Troponin I < 0.0120 ng/mL (0.00-0.120) 06/19/18 23:31 Total Protein 7.3 G/DL (6.3-8.2) 06/19/18 10:25 Albumin 4.3 g/dL (3.5-5.0) 06/19/18 10:25 Globulin 2.9 gm/dL (2.2-3.9) 06/19/18 10:25 Albumin/Globulin Ratio 1.5 (1.0-2.1) 06/19/18 10:25 Triglycerides 157 mg/DL (0-149) H D 06/19/18 23:31 Cholesterol 144 mg/dL (0-199) 06/19/18 23:31 LDL Cholesterol Direct 82 mg/dL (0-129) 06/19/18 23:31 HDL Cholesterol 37 MG/DL (30-70) 06/19/18 23:31 TSH 3rd Generation 2.31 mIU/ML (0.46-4.68) 06/19/18 23:31 - Hospital Course Hospital Course: 52 Y/O Female with PMH of HTN currently not on any medication, obesity, and hypothyroidsm admitted to [facility] ED with c/o left sided chest pain. During her hospital stay patient has been stable, EKG NSR with no ST segment or T wave abnormalities noted, Cardiac Troponins x 3 negative, CBC and Chem done unremarkable, TSH normal 2.31, HbA1C 5.8 borderline pre-diabetes. Patient started on Norvasc 5 PO QD for HTN and to continue outpatient management of HTN. Patient is hemodinamically stable. Patient seen and examined this AM, states feeling better, denies CP at this time, also dnies abdominal pain, SOB, palpitations, nausea or vomiting. VS WNL Patient is for DC home today with instructions to follow with PMD within a week. Discharge Exam - Head Exam Head Exam: ATRAUMATIC, NORMOCEPHALIC - Eye Exam Eye Exam: EOMI - ENT Exam ENT Exam: Mucous Membranes Moist - Respiratory Exam Respiratory Exam: Clear to PA & Lateral. absent: Wheezes - Cardiovascular Exam Cardiovascular Exam: REGULAR RHYTHM, +S1, +S2 - GI/Abdominal Exam GI & Abdominal Exam: Soft. absent: Tenderness - Neurological Exam Neurological exam: Alert, CN II-XII Intact, Normal Gait, Oriented x3 - Psychiatric Exam Psychiatric exam: Normal Affect - Skin Skin Exam: Normal Color, Warm Discharge Plan - Discharge Medications Prescriptions: amLODIPine [Norvasc] 5 mg PO DAILY #30 tab - Follow Up Plan Condition: FAIR Disposition: HOME/ ROUTINE Patient education suggested?: Yes Instructions: Chest Pain (DC) Additional Instructions: Follow up with your PMD within 1 week Continue taking your medications as prescribed ED precautions: Return to the ED if your chest pain recurs, or you have shortness of breath, fatigue, palpitations, abdominal pain, severe headache, fever or other symptom or concerns presents Referrals: Nithin Tavares MD [Staff Provider] - <Gal Stevenson - Last Filed: 06/20/18 13:22> Provider - Provider Date of Admission: 06/19/18 11:59 Attending physician: Gal Stevenson MD Hospital Course - Lab Results Lab Results: Most Recent Lab Values WBC 7.6 K/uL (4.8-10.8) 06/20/18 05:15 RBC 4.76 Mil/uL (3.80-5.20) 06/20/18 05:15 Hgb 13.0 g/dL (12.0-16.0) 06/20/18 05:15 Hct 40.4 % (34.0-47.0) 06/20/18 05:15 MCV 85.0 fl (81.0-99.0) 06/20/18 05:15 MCH 27.4 pg (27.0-31.0) 06/20/18 05:15 MCHC 32.3 g/dL (33.0-37.0) L 06/20/18 05:15 RDW 14.5 % (11.5-14.5) 06/20/18 05:15 Plt Count 324 K/uL (130-400) 06/20/18 05:15 MPV 10.2 fl (7.2-11.7) 06/20/18 05:15 Neut % (Auto) 35.2 % (50.0-75.0) L 06/20/18 05:15 Lymph % (Auto) 46.8 % (20.0-40.0) H 06/20/18 05:15 Waldo % (Auto) 12.7 % (0.0-10.0) H 06/20/18 05:15 Eos % (Auto) 4.3 % (0.0-4.0) H 06/20/18 05:15 Baso % (Auto) 1.0 % (0.0-2.0) 06/20/18 05:15 Neut # (Auto) 2.7 K/uL (1.8-7.0) 06/20/18 05:15 Lymph # (Auto) 3.5 K/uL (1.0-4.3) 06/20/18 05:15 Waldo # (Auto) 1.0 K/uL (0.0-0.8) H 06/20/18 05:15 Eos # (Auto) 0.3 K/uL (0.0-0.7) 06/20/18 05:15 Baso # (Auto) 0.1 K/uL (0.0-0.2) 06/20/18 05:15 PT 11.3 Seconds (9.8-13.1) 06/19/18 10:25 INR 1.0 06/19/18 10:25 APTT 34.1 Seconds (25.6-37.1) 06/19/18 10:25 Sodium 140 mmol/l (132-148) 06/20/18 05:15 Potassium 3.9 MMOL/L (3.6-5.0) 06/20/18 05:15 Chloride 107 mmol/L (98-107) 06/20/18 05:15 Carbon Dioxide 26 mmol/L (22-30) 06/20/18 05:15 Anion Gap 11 (10-20) 06/20/18 05:15 BUN 16 mg/dl (7-17) 06/20/18 05:15 Creatinine 0.6 mg/dl (0.7-1.2) L 06/20/18 05:15 Est GFR ( Amer) > 60 06/20/18 05:15 Est GFR (Non-Af Amer) > 60 06/20/18 05:15 Random Glucose 91 mg/dL (65-105) 06/20/18 05:15 Hemoglobin A1c 5.8 % (4.2-6.5) 06/19/18 16:30 Calcium 9.0 mg/dL (8.4-10.2) 06/20/18 05:15 Total Bilirubin 0.4 mg/dl (0.2-1.3) 06/19/18 10:25 AST 30 U/L (14-36) 06/19/18 10:25 ALT 27 U/L (9-52) 06/19/18 10:25 Alkaline Phosphatase 43 U/L (38-126) 06/19/18 10:25 Troponin I < 0.0120 ng/mL (0.00-0.120) 06/19/18 23:31 Total Protein 7.3 G/DL (6.3-8.2) 06/19/18 10:25 Albumin 4.3 g/dL (3.5-5.0) 06/19/18 10:25 Globulin 2.9 gm/dL (2.2-3.9) 06/19/18 10:25 Albumin/Globulin Ratio 1.5 (1.0-2.1) 06/19/18 10:25 Triglycerides 157 mg/DL (0-149) H D 06/19/18 23:31 Cholesterol 144 mg/dL (0-199) 06/19/18 23:31 LDL Cholesterol Direct 82 mg/dL (0-129) 06/19/18 23:31 HDL Cholesterol 37 MG/DL (30-70) 06/19/18 23:31 TSH 3rd Generation 2.31 mIU/ML (0.46-4.68) 06/19/18 23:31 Attending/Attestation - Attestation I have personally seen and examined this patient.: Yes I have fully participated in the care of the patient.: Yes I have reviewed all pertinent clinical information, including history, physical exam and plan: Yes Notes (Text): 06/20/18 13:21 Patient seen and examined with resident. Case discussed and agreed with assessment. Patient discharged in stable condition.
[2018-06-21] MEDS ORDERED: Multivitamin With Minerals Tab PO SCH (09:00)
== END 2018-06-20 12:45 | disposition home or self-care (01) ==
LOC: H.ER 09:25 → H.ERHOLD 11:59 → H.TEL 14:14
DX: R07.9 Chest pain, unspecified (principal); I10 Essential (primary) hypertension; E66.9 Obesity, unspecified; Z68.33 Body mass index [BMI] 33.0-33.9, adult
CPT/HCPCS: 36415; 71046; 80048; 80053; 80061; 81025; 83036; 84443; 84484; 85025; 85610; 85730; 93005; 99285; G0378; J1650; J7040

== ENCOUNTER 2018-08-13 06:27 | Emergency (ER) | payer OTHER ==
[2018-08-13 06:41] VITALS: BMI 38.4
[2018-08-13] MEDS ORDERED: Sodium Chloride 0.9% 1,000 ML IV STA (07:44)
--- NOTE | 2018-08-13 07:46 | ED PDOC ---
History of Present Illness History of Present Illness: Pt reports sore throat, dry cough, fever (Tm 100), nausea and frequent BM X 2 days, returned from [place] 3 days ago. Grandson and daughter with similar sxs. Denies vomiting, abdominal pain, CP, SOB, diarrhea. HPI: Influenza Time Seen by Provider: 08/13/18 07:10 Chief Complaint: Flu-like Symptoms Past Medical History Reviewed: Nursing Documentation, Vital Signs Vital Signs: Last Vital Signs Temp 99.0 F 08/13/18 06:41 Pulse 94 H 08/13/18 06:41 Resp 17 08/13/18 06:41 BP 143/80 08/13/18 06:41 Pulse Ox 96 08/13/18 06:41 Primary Care Provider: Alberto Conrad - Medical History PMH: HTN Denies: HIV, Chronic Kidney Disease - Surgical History Surgical History: Appendectomy Other surgeries: Oopherectomy - Family History Family History: States: Unknown Family Hx - Living Arrangements Living Arrangements: With Family - Social History Current smoker - smoking cessation education provided: No Alcohol: None - Immunization History Hx Tetanus Toxoid Vaccination: No Hx Influenza Vaccination: No Hx Pneumococcal Vaccination: No - Home Medications Home Medications: Ambulatory Orders Medication Instructions Recorded Multivitamin [Multi-Vitamin Daily] 1 tab PO DAILY 06/19/18 amLODIPine [Norvasc] 5 mg PO DAILY #30 tab 06/20/18 Azithromycin [Zithromax] 500 mg PO DAILY #2 tab 08/13/18 Ondansetron ODT [Zofran ODT] 4 mg PO Q8H PRN #20 odt 08/13/18 - Allergies Allergies/Adverse Reactions: Allergies Allergy/AdvReac Type Severity Reaction Status Date / Time No Known Allergies Allergy Verified 08/13/18 06:40 Review of Systems Constitutional: Positive for: Fever, Chills ENT: Positive for: Throat Pain. Negative for: Ear Pain, Throat Swelling Cardiovascular: Negative for: Chest Pain, Palpitations Respiratory: Positive for: Cough. Negative for: Shortness of Breath Gastrointestinal: Positive for: Nausea. Negative for: Vomiting, Abdominal Pain, Diarrhea Genitourinary Female: Negative for: Dysuria, Hematuria Skin: Negative for: Rash, Lesions Neurological: Negative for: Headache, Dizziness Physical Exam - Reviewed Nursing Documentation Reviewed: Yes Vital Signs Reviewed: Yes - Physical Exam Appears: Positive for: Well, No Acute Distress Head Exam: Positive for: ATRAUMATIC, NORMAL INSPECTION Skin: Positive for: Normal Color, Warm, Dry Eye Exam: Positive for: Normal appearance, EOMI, PERRL ENT: Positive for: Pharynx Is (Clear). Negative for: Pharyngeal Erythema, Tonsillar Exudate, Tonsillar Swelling Cardiovascular/Chest: Positive for: Regular Rate, Rhythm Respiratory: Positive for: Normal Breath Sounds Gastrointestinal/Abdominal: Positive for: Normal Exam, Bowel Sounds, Soft. Negative for: Tenderness Back: Positive for: Normal Inspection. Negative for: L CVA Tenderness, R CVA Tenderness Neurological/Psych: Positive for: Awake, Alert, Oriented Medical Decision Making Medical Decision Makin yo female with sore throat, nausea and cough. - labs - EKG - CXR - IVF - Zofran - Laboratory Results Result Diagrams: 08/13/18 07:53 08/13/18 07:53 - ECG O2 Sat by Pulse Oximetry: 96 Disposition - Clinical Impression Clinical Impression: Pharyngitis - Disposition Disposition: Routine/Home Disposition Time: 12:38 Condition: IMPROVED Additional Instructions: FOLLOW-UP WITH PMD WITHIN 2 DAYS FOR REEVALUATION. Prescriptions: Azithromycin [Zithromax] 500 mg PO DAILY #2 tab Ondansetron ODT [Zofran ODT] 4 mg PO Q8H PRN #20 odt PRN Reason: Nausea/Vomiting Instructions: Bacterial Upper Respiratory Infection, Adult Forms: [employer] (Lao), [facility] ED School/Work Excuse Print Language: ALBAN[place]
[2018-08-13 08:15] LABS: BASO # 0.1 K/uL (0.0-0.2); BASO % 0.8 % (0.0-2.0); EOS # 0.1 K/uL (0.0-0.7); EOS % 0.3 % (0.0-4.0); HEMOGLOBIN 12.1 g/dL (12.0-16.0); LYMPH # 1.8 K/uL (1.0-4.3); LYMPH % 10.5 % (20.0-40.0); MEAN CORPUSCULAR HEMOGLOBIN 27.9 pg (27.0-31.0); MEAN CORPUSCULAR HGB CONC 32.8 g/dL (33.0-37.0); MEAN PLATELET VOLUME 9.4 fl (7.2-11.7); MONO # 1.7 K/uL (0.0-0.8); MONO % 9.9 % (0.0-10.0); NEUT # 13.8 K/uL (1.8-7.0); NEUT % 78.5 % (50.0-75.0); NRBC % 0.1 % (0.0-0.0); RBC 4.35 Mil/uL (3.80-5.20); RED CELL DISTRIBUTION WIDTH 14.9 % (11.5-14.5); WHITE BLOOD COUNT 17.6 K/uL (4.8-10.8)
[2018-08-13 08:21] LABS: ALB/GLOB RATIO 1.5 (1.0-2.1); ALBUMIN 4.3 g/dL (3.5-5.0); ALT/SGPT 32 U/L (9-52); AST/SGOT 31 U/L (14-36); BLOOD UREA NITROGEN 12 mg/dl (7-17); CALCIUM 9.1 mg/dL (8.4-10.2); GFR NON-AFRICAN AMERICAN > 60; LIPASE 49 U/L (23-300)
[2018-08-13 08:33] LABS: SQUAMOUS EPITHIAL 2 /hpf (0-5); URINE BILIRUBIN NEGATIVE (NEGATIVE); URINE BLOOD NEGATIVE (NEGATIVE); URINE CLARITY CLEAR (Clear); URINE COLOR YELLOW (YELLOW); URINE GLUCOSE (UA) NEG (NEGATIVE); URINE LEUKOCYTE ESTERASE TRACE Leu/uL (Negative); URINE PROTEIN NEGATIVE (NEGATIVE); URINE UROBILINOGEN 0.2-1.0 mg/dL (0.2-1.0)
--- NOTE | 2018-08-13 09:03 | RAD ---
Date of service: 08/13/2018 HISTORY: Cough COMPARISON: Chest radiographs 06/19/2018. TECHNIQUE: Chest PA and lateral views FINDINGS: LUNGS: No active pulmonary disease. PLEURA: No significant pleural effusion identified. No pneumothorax apparent. CARDIOVASCULAR: No aortic atherosclerotic calcification present. Normal cardiac size. No pulmonary vascular congestion. OSSEOUS STRUCTURES: No significant abnormalities. VISUALIZED UPPER ABDOMEN: Normal. OTHER FINDINGS: None. IMPRESSION: No interval acute cardiopulmonary disease appreciated.
[2018-08-13 09:14] LABS: INR 1.1; PROTHROMBIN TIME 12.4 Seconds (9.8-13.1)
[2018-08-13 09:17] LABS: PARTIAL THROMBOPLASTIN TIME 32.5 Seconds (25.6-37.1)
[2018-08-13] MEDS ORDERED: Azithromycin 500 MG in Sodium Chloride 0.9% 250 ML IV STA (10:49)
[2018-08-13] MEDS ORDERED: Azithromycin 500 MG IV IVPB ONE (10:52)
[2018-08-13 10:59] VITALS: TEMP 99.6
[2018-08-13 12:51] VITALS: BP 101/74; PULSE 84; RESP 18
--- NOTE | 2018-08-13 19:23 | CARD ---
APPROVED REPORT Date of service: 08/13/2018 EKG Measurement Heart [id number] <Conclusion> Normal sinus rhythm Normal ECG
[2018-08-14 21:36] VITALS: O2SAT 96
== END 2018-08-13 12:49 | disposition home or self-care (01) ==
LOC: H.ER 06:27
DX: J02.9 Acute pharyngitis, unspecified (principal); I10 Essential (primary) hypertension; Z79.899 Other long term (current) drug therapy
CPT/HCPCS: 71046; 80053; 81003; 81025; 83690; 85025; 85610; 85730; 87070; 87430; 87804; 93005; 96361; 96365; 96375; 99284; J0456; J2405; J7030